=== PATIENT | male | born 1940 | race Caucasian/White ===

== ENCOUNTER → 2019-09-22 | Outpatient (CLI) | payer MEDICARE ==
[2019-09-23 14:03] LABS: Bilirubin, Urine Neg (Neg); Blood, Urine 4+ (Neg); Glucose Qualitative, Urine Neg (Neg); Ketones, Urine Neg (Neg); Leukocyte Esterase, Urine 3+ (Neg); Nitrite, Urine Neg (Neg); Protein, Urine 2+ (Neg); Specific Gravity, Urine 1.015 (1.003-1.022); Urobilinogen, Urine NORM (Normal)
[2019-09-23 14:25] LABS: Appearance, Urine Clear (Clear); Color, Urine Yellow (P-Yellow)
[2019-09-23 14:26] LABS: Bacteria Mod /hpf; Calcium Oxalate Crystals Mod /hpf; Squamous Epithelial Cells Not Seen /hpf (Few); White Blood Cells, Urine 25-50 /hpf (0-5)
== END | disposition home or self-care (01) ==
LOC: LAB SHORT 10:00 → LAB 10:00
PROVIDERS: Nurse Practitioner Family
DX: R82.998 Other abnormal findings in urine (principal)
CPT/HCPCS: 81001; 87086

== ENCOUNTER 2019-12-02 12:30 | Emergency (ER) | payer MEDICARE ==
[~2019-12-02] VITALS: Ht 172.7 cm; Wt 69.0 kg
[2019-12-02] MEDS ORDERED: PANTOPRAZOLE SO40 M2 PO (17:23)
[2019-12-02] MEDS ORDERED: CARVEDILOL6.25 MG PO (17:23)
[2019-12-02] MEDS ORDERED: CALCITRIOL0.25 MC1 PO (17:23)
[2019-12-02] MEDS ORDERED: LOSARTAN POTASS25 M2 PO (17:23)
[2019-12-02] MEDS ORDERED: ALLOPURINOL100 M1 PO (17:23)
[2019-12-02] MEDS ORDERED: TAMSULOSIN HCL0.4 M1 PO (17:23)
== END 2019-12-02 19:20 | disposition home or self-care (01) ==
LOC: ER 12:30
DX: S40.011A Contusion of right shoulder, initial encounter (principal); S70.01XA Contusion of right hip, initial encounter; F03.90 Unspecified dementia, unspecified severity, without behavioral disturbance, psychotic disturbance, mood disturbance, and anxiety; I48.91 Unspecified atrial fibrillation; N40.0 Benign prostatic hyperplasia without lower urinary tract symptoms; I13.0 Hypertensive heart and chronic kidney disease with heart failure and stage 1 through stage 4 chronic kidney disease, or unspecified chronic kidney disease; N18.3 Chronic kidney disease, stage 3 (moderate); I50.9 Heart failure, unspecified; K21.9 Gastro-esophageal reflux disease without esophagitis; E78.5 Hyperlipidemia, unspecified; Z95.810 Presence of automatic (implantable) cardiac defibrillator; Z88.8 Allergy status to other drugs, medicaments and biological substances; Z79.899 Other long term (current) drug therapy; W18.2XXA Fall in (into) shower or empty bathtub, initial encounter
CPT/HCPCS: 73030; 73502; 99283-25

== ENCOUNTER 2019-12-12 08:51 | Emergency (ER) | payer MEDICARE ==
[~2019-12-12] VITALS: Ht 172.7 cm; Wt 69.0 kg
[~2019-12-12 08:51] MED LIST: ALLOPURINOL100 M1 PO; CALCITRIOL0.25 MC1 PO; CARVEDILOL6.25 MG PO; LOSARTAN POTASS25 M2 PO; PANTOPRAZOLE SO40 M2 PO; TAMSULOSIN HCL0.4 M1 PO
[2019-12-12] MEDS ORDERED: ELIQUIS5 MG PO (10:03)
[2019-12-12] MEDS ORDERED: MELA3 PO (10:04)
[2019-12-12] MEDS ORDERED: FERSU300 PO (10:04)
[2019-12-12] MEDS ORDERED: CENTRUM SILVER1 EAC2 PO (10:06)
[2019-12-12] MEDS ORDERED: ROSU5 PO (10:09)
[2019-12-12] MEDS ORDERED: QUET25 PO (10:09)
[2019-12-12] MEDS ORDERED: TORSE20 PO (10:10)
[2019-12-12] MEDS ORDERED: SERT100 PO (10:10)
[2019-12-12] MEDS ORDERED: LOPE2C PO (10:11)
[2019-12-12] MEDS ORDERED: LORA.5 PO (10:11)
[2019-12-12] MEDS ORDERED: ASCO500 PO (10:11)
[2019-12-12 10:16] LABS: BASOPHILS ABSOLUTE AUTO 0.06 K/mm3 (0.00-0.23); BASOPHILS PERCENT AUTO 1 % (0-2); EOSINOPHILS ABSOLUTE AUTO 0.25 K/mm3 (0.00-0.68); EOSINOPHILS PERCENT AUTO 5 % (0-6); Hematocrit 42.7 % (37.0-53.0); Hemoglobin 13.5 g/dL (13.5-17.5); IMMATURE GRAN ABSOLUTE AUTO 0.01 K/mm3 (0.00-0.10); IMMATURE GRAN PERCENT AUTO 0 % (0-1); LYMPHOCYTES PERCENT AUTO 20 % (21-46); MONOCYTES PERCENT AUTO 10 % (4-13); Mean Corpuscular HGB 29.2 pg (26.0-34.0); Mean Corpuscular HGB Conc 31.6 g/dL (31.5-36.5); Mean Corpuscular Volume 92 fL (80-100); Mean Platelet Volume 11.4 fL (9.1-12.4); NEUTROPHILS ABSOLUTE AUTO 3.13 K/mm3 (1.96-9.15); NEUTROPHILS PERCENT AUTO 63 % (41-73); Platelet Count 158 K/mm3 (150-400); RDW Coefficient Variation 17.1 % (11.7-14.2); Red Blood Cell Count 4.63 M/mm3 (4.30-5.90); White Blood Cell Count 4.95 K/mm3 (4.00-11.30)
[2019-12-12 10:39] LABS: Alanine Aminotransfer (ALT/SGP 31 U/L (12-78); Albumin, Blood 3.7 g/dL (3.4-5.0); Albumin/Globulin Ratio 1.2 (0.8-1.8); Alk Phos 114 U/L (50-136); Anion Gap 7 mmol/L (6-16); Aspartate Aminotrans (AST/SGOT 23 U/L (12-37); Bilirubin, Total 1.1 mg/dL (0.1-1.0); Blood Urea Nitrogen 28 mg/dL (8-24); Bun/Creatinine Ratio 19.7 (12.0-20.0); CO2, Blood 29 mmol/L (21-32); Calcium, Blood 8.9 mg/dL (8.5-10.1); Chloride, Blood 104 mmol/L (98-108); Creatinine, Blood 1.42 mg/dL (0.60-1.20); Globulin, Blood 3.2 g/dL (2.2-4.0); Glomerular Filtration Rate 51 (60-); Glucose, Blood 108 mg/dL (70-99); Potassium, Blood 3.7 mmol/L (3.5-5.5); Sodium, Blood 140 mmol/L (136-145); Total Protein, Blood 6.9 g/dL (6.4-8.2); Troponin I <0.015 ng/mL (0.000-0.040)
[2019-12-12 11:09] LABS: Source, Urine Clean Catch
[2019-12-12 11:13] LABS: Appearance, Urine Clear (Clear); Bilirubin, Urine Neg (Neg); Blood, Urine 2+ (Neg); Color, Urine Yellow (P-Yellow); Glucose Qualitative, Urine Neg (Neg); Ketones, Urine Neg (Neg); Leukocyte Esterase, Urine 1+ (Neg); Nitrite, Urine Neg (Neg); Protein, Urine Neg (Neg); Urobilinogen, Urine 1+ (Normal)
[2019-12-12 11:50] LABS: Bacteria Rare /hpf; Hyaline Casts 0-2 /lpf (0-2); Squamous Epithelial Cells Not Seen /hpf (Few)
== END 2019-12-12 14:27 | disposition home or self-care (01) ==
LOC: ER 08:51
PROVIDERS: Physician Assistant
DX: R53.1 Weakness (principal); I48.91 Unspecified atrial fibrillation; N40.0 Benign prostatic hyperplasia without lower urinary tract symptoms; I13.0 Hypertensive heart and chronic kidney disease with heart failure and stage 1 through stage 4 chronic kidney disease, or unspecified chronic kidney disease; N18.30 Chronic kidney disease, stage 3 unspecified; I50.9 Heart failure, unspecified; K21.9 Gastro-esophageal reflux disease without esophagitis; F01.50 Vascular dementia, unspecified severity, without behavioral disturbance, psychotic disturbance, mood disturbance, and anxiety; Z79.899 Other long term (current) drug therapy; Z79.01 Long term (current) use of anticoagulants; Z88.8 Allergy status to other drugs, medicaments and biological substances; Z95.810 Presence of automatic (implantable) cardiac defibrillator
CPT/HCPCS: 36415; 70450; 71046; 80053; 81001; 83880; 84484; 85025; 87086; 96360; 96361; 96372-59; 99285-25; J1650; J7030

== ENCOUNTER 2019-12-29 13:53 | Emergency (ER) | payer MEDICARE ==
[~2019-12-29] VITALS: Ht 167.6 cm; Wt 69.0 kg
[~2019-12-29 13:53] MED LIST changes: +ASCO500 PO; +CENTRUM SILVER1 EAC2 PO; +ELIQUIS5 MG PO; +FERSU300 PO; +LOPE2C PO; +LORA.5 PO; +MELA3 PO; +QUET25 PO; +ROSU5 PO; +SERT100 PO; +TORSE20 PO
[2019-12-29 14:33] LABS: BASOPHILS ABSOLUTE AUTO 0.06 K/mm3 (0.00-0.23); BASOPHILS PERCENT AUTO 1 % (0-2); EOSINOPHILS ABSOLUTE AUTO 0.03 K/mm3 (0.00-0.68); EOSINOPHILS PERCENT AUTO 0 % (0-6); Hematocrit 47.6 % (37.0-53.0); Hemoglobin 15.2 g/dL (13.5-17.5); IMMATURE GRAN ABSOLUTE AUTO 0.03 K/mm3 (0.00-0.10); IMMATURE GRAN PERCENT AUTO 0 % (0-1); LYMPHOCYTES ABSOLUTE AUTO 0.73 K/mm3 (0.84-5.20); LYMPHOCYTES PERCENT AUTO 9 % (21-46); MONOCYTES ABSOLUTE AUTO 0.52 K/mm3 (0.16-1.47); MONOCYTES PERCENT AUTO 7 % (4-13); Mean Corpuscular HGB 29.6 pg (26.0-34.0); Mean Corpuscular HGB Conc 31.9 g/dL (31.5-36.5); Mean Corpuscular Volume 93 fL (80-100); Mean Platelet Volume 10.8 fL (9.1-12.4); NEUTROPHILS ABSOLUTE AUTO 6.42 K/mm3 (1.96-9.15); NEUTROPHILS PERCENT AUTO 82 % (41-73); Platelet Count 177 K/mm3 (150-400); RDW Coefficient Variation 16.6 % (11.7-14.2); RDW Standard Deviation 55.9 fL (35.1-46.3); Red Blood Cell Count 5.14 M/mm3 (4.30-5.90); White Blood Cell Count 7.79 K/mm3 (4.00-11.30)
[2019-12-29 14:49] LABS: Albumin, Blood 3.9 g/dL (3.4-5.0); Albumin/Globulin Ratio 1.4 (0.8-1.8); Bilirubin, Total 2.5 mg/dL (0.1-1.0); Bun/Creatinine Ratio 21.2 (12.0-20.0); Calcium, Blood 8.8 mg/dL (8.5-10.1); Creatinine, Blood 1.79 mg/dL (0.60-1.20); Globulin, Blood 2.8 g/dL (2.2-4.0); Potassium, Blood 4.4 mmol/L (3.5-5.5); Total Protein, Blood 6.7 g/dL (6.4-8.2); Troponin I 0.038 ng/mL (0.000-0.040)
== END 2019-12-29 18:38 | disposition home or self-care (01) ==
LOC: ER 13:53
PROVIDERS: Emergency Medicine
DX: R07.9 Chest pain, unspecified (principal); I48.91 Unspecified atrial fibrillation; I12.9 Hypertensive chronic kidney disease with stage 1 through stage 4 chronic kidney disease, or unspecified chronic kidney disease; N18.30 Chronic kidney disease, stage 3 unspecified; K21.9 Gastro-esophageal reflux disease without esophagitis; E78.5 Hyperlipidemia, unspecified; Z20.828 Contact with and (suspected) exposure to other viral communicable diseases; Z95.0 Presence of cardiac pacemaker; Z88.8 Allergy status to other drugs, medicaments and biological substances; Z79.899 Other long term (current) drug therapy; Z79.01 Long term (current) use of anticoagulants
CPT/HCPCS: 36415; 71045; 80053; 83690; 83880; 84484; 85025; 93005; 93010; 99285-25; U0003

== ENCOUNTER 2020-01-27 15:26 | Emergency (ER) | payer MEDICARE ==
[~2020-01-27] VITALS: Ht 170.2 cm; Wt 63.5 kg
[2020-01-27 16:12] LABS: BASOPHILS ABSOLUTE AUTO 0.05 K/mm3 (0.00-0.23); BASOPHILS PERCENT AUTO 1 % (0-2); EOSINOPHILS PERCENT AUTO 5 % (0-6); Hematocrit 45.5 % (37.0-53.0); Hemoglobin 14.3 g/dL (13.5-17.5); IMMATURE GRAN PERCENT AUTO 0 % (0-1); LYMPHOCYTES ABSOLUTE AUTO 1.01 K/mm3 (0.84-5.20); LYMPHOCYTES PERCENT AUTO 24 % (21-46); MONOCYTES PERCENT AUTO 12 % (4-13); Mean Corpuscular HGB 28.5 pg (26.0-34.0); Mean Corpuscular HGB Conc 31.4 g/dL (31.5-36.5); Mean Corpuscular Volume 91 fL (80-100); Mean Platelet Volume 10.8 fL (9.1-12.4); NEUTROPHILS ABSOLUTE AUTO 2.54 K/mm3 (1.96-9.15); NEUTROPHILS PERCENT AUTO 59 % (41-73); Platelet Count 219 K/mm3 (150-400); RDW Coefficient Variation 15.9 % (11.7-14.2); RDW Standard Deviation 52.2 fL (35.1-46.3); Red Blood Cell Count 5.02 M/mm3 (4.30-5.90)
[2020-01-27 16:28] LABS: Albumin, Blood 3.8 g/dL (3.4-5.0); Albumin/Globulin Ratio 1.1 (0.8-1.8); Bun/Creatinine Ratio 29.4 (12.0-20.0); Calcium, Blood 8.9 mg/dL (8.5-10.1); Creatinine, Blood 1.43 mg/dL (0.60-1.20); Globulin, Blood 3.6 g/dL (2.2-4.0); Potassium, Blood 3.5 mmol/L (3.5-5.5); Total Protein, Blood 7.4 g/dL (6.4-8.2)
== END 2020-01-27 18:56 | disposition home or self-care (01) ==
LOC: ER 15:26
PROVIDERS: Emergency Medicine
DX: K92.2 Gastrointestinal hemorrhage, unspecified (principal); I13.0 Hypertensive heart and chronic kidney disease with heart failure and stage 1 through stage 4 chronic kidney disease, or unspecified chronic kidney disease; I50.9 Heart failure, unspecified; N18.30 Chronic kidney disease, stage 3 unspecified; I48.91 Unspecified atrial fibrillation; I48.92 Unspecified atrial flutter; K21.9 Gastro-esophageal reflux disease without esophagitis; E78.5 Hyperlipidemia, unspecified; F01.50 Vascular dementia, unspecified severity, without behavioral disturbance, psychotic disturbance, mood disturbance, and anxiety; Z79.899 Other long term (current) drug therapy; Z79.02 Long term (current) use of antithrombotics/antiplatelets; Z88.8 Allergy status to other drugs, medicaments and biological substances; Z95.0 Presence of cardiac pacemaker
CPT/HCPCS: 36415; 80053; 82272; 85025; 93005; 93010; 99284-25

== ENCOUNTER 2020-06-16 09:01 | Emergency (ER) | payer MEDICARE ==
[~2020-06-16] VITALS: Ht 170.2 cm; Wt 73.5 kg
== END 2020-06-16 12:14 | disposition home or self-care (01) ==
LOC: ER 09:01
DX: R06.02 Shortness of breath (principal); I13.0 Hypertensive heart and chronic kidney disease with heart failure and stage 1 through stage 4 chronic kidney disease, or unspecified chronic kidney disease; N18.30 Chronic kidney disease, stage 3 unspecified; K21.9 Gastro-esophageal reflux disease without esophagitis; E78.5 Hyperlipidemia, unspecified; I48.91 Unspecified atrial fibrillation; Z79.899 Other long term (current) drug therapy
CPT/HCPCS: 70450; 71045; 80053; 83880; 84484; 85025; 93005; 93010; 96374; 99285-25; J1940

== ENCOUNTER 2020-06-18 12:10 | Emergency (ER) | payer MEDICARE ==
[~2020-06-18] VITALS: Ht 167.6 cm; Wt 73.5 kg
[2020-06-18 12:42] LABS: BASOPHILS ABSOLUTE AUTO 0.08 K/mm3 (0.00-0.23); BASOPHILS PERCENT AUTO 2 % (0-2); EOSINOPHILS ABSOLUTE AUTO 0.16 K/mm3 (0.00-0.68); EOSINOPHILS PERCENT AUTO 3 % (0-6); Hematocrit 44.3 % (37.0-53.0); Hemoglobin 14.2 g/dL (13.5-17.5); IMMATURE GRAN ABSOLUTE AUTO 0.01 K/mm3 (0.00-0.10); IMMATURE GRAN PERCENT AUTO 0 % (0-1); LYMPHOCYTES ABSOLUTE AUTO 0.81 K/mm3 (0.84-5.20); LYMPHOCYTES PERCENT AUTO 15 % (21-46); MONOCYTES ABSOLUTE AUTO 0.47 K/mm3 (0.16-1.47); MONOCYTES PERCENT AUTO 9 % (4-13); Mean Corpuscular HGB 29.5 pg (26.0-34.0); Mean Corpuscular HGB Conc 32.1 g/dL (31.5-36.5); Mean Corpuscular Volume 92 fL (80-100); Mean Platelet Volume 11.7 fL (9.1-12.4); NEUTROPHILS ABSOLUTE AUTO 3.97 K/mm3 (1.96-9.15); NEUTROPHILS PERCENT AUTO 72 % (41-73); Platelet Count 143 K/mm3 (150-400); RDW Coefficient Variation 15.3 % (11.7-14.2); RDW Standard Deviation 51.7 fL (35.1-46.3); Red Blood Cell Count 4.81 M/mm3 (4.30-5.90)
[2020-06-18] MEDS ORDERED: ACET325 PO (12:46)
[2020-06-18] MEDS ORDERED: MIRALAX17 GM PO (12:47)
[2020-06-18 13:08] LABS: Albumin, Blood 3.8 g/dL (3.4-5.0); Albumin/Globulin Ratio 1.2 (0.8-1.8); Bilirubin, Total 1.3 mg/dL (0.1-1.0); Bun/Creatinine Ratio 27.7 (12.0-20.0); Calcium, Blood 8.4 mg/dL (8.5-10.1); Creatinine, Blood 1.37 mg/dL (0.60-1.20); Globulin, Blood 3.3 g/dL (2.2-4.0); Potassium, Blood 4.2 mmol/L (3.5-5.5); Total Protein, Blood 7.1 g/dL (6.4-8.2); Troponin I 0.022 ng/mL (0.000-0.040)
== END 2020-06-18 16:00 | disposition home or self-care (01) ==
LOC: ER 12:10
PROVIDERS: Emergency Medicine
DX: I13.0 Hypertensive heart and chronic kidney disease with heart failure and stage 1 through stage 4 chronic kidney disease, or unspecified chronic kidney disease (principal); I50.9 Heart failure, unspecified; N18.9 Chronic kidney disease, unspecified; I48.91 Unspecified atrial fibrillation; Z79.899 Other long term (current) drug therapy
CPT/HCPCS: 36415; 71045; 80053; 83880; 84484; 85025; 93005; 93010; 99285-25; A9270

== ENCOUNTER 2020-07-09 19:48 | Emergency (ER) | payer MEDICARE, OTHER ==
[~2020-07-09] VITALS: Ht 170.2 cm; Wt 77.1 kg
[~2020-07-09 19:48] MED LIST changes: -ALLOPURINOL100 M1 PO; -ASCO500 PO; -CARVEDILOL6.25 MG PO; -ELIQUIS5 MG PO; -FERSU300 PO; +LOSA25 PO; -LOSARTAN POTASS25 M2 PO; -MELA3 PO; +MIRALAX17 GM PO; +Melatonin1 MG PO
== END 2020-07-09 23:00 | disposition home or self-care (01) ==
LOC: ER 19:48
DX: S20.224A Contusion of middle back wall of thorax, initial encounter (principal); I13.0 Hypertensive heart and chronic kidney disease with heart failure and stage 1 through stage 4 chronic kidney disease, or unspecified chronic kidney disease; I50.9 Heart failure, unspecified; N18.30 Chronic kidney disease, stage 3 unspecified; K21.9 Gastro-esophageal reflux disease without esophagitis; Z88.8 Allergy status to other drugs, medicaments and biological substances; Z79.899 Other long term (current) drug therapy; W18.30XA Fall on same level, unspecified, initial encounter
CPT/HCPCS: 36415; 72070; 72100; 99283-25

== ENCOUNTER 2020-08-12 09:48 | Observation (INO) | payer MEDICARE, OTHER ==
[~2020-08-12] VITALS: Ht 170.2 cm; Wt 84.0 kg
[2020-08-12 10:08] LABS: BASOPHILS ABSOLUTE AUTO 0.04 K/mm3 (0.00-0.23); BASOPHILS PERCENT AUTO 1 % (0-2); EOSINOPHILS PERCENT AUTO 2 % (0-6); Hemoglobin 13.5 g/dL (13.5-17.5); IMMATURE GRAN ABSOLUTE AUTO 0.01 K/mm3 (0.00-0.10); IMMATURE GRAN PERCENT AUTO 0 % (0-1); LYMPHOCYTES ABSOLUTE AUTO 0.65 K/mm3 (0.84-5.20); LYMPHOCYTES PERCENT AUTO 10 % (21-46); MONOCYTES ABSOLUTE AUTO 0.47 K/mm3 (0.16-1.47); MONOCYTES PERCENT AUTO 7 % (4-13); Mean Corpuscular HGB 30.1 pg (26.0-34.0); Mean Corpuscular HGB Conc 32.1 g/dL (31.5-36.5); Mean Corpuscular Volume 94 fL (80-100); NEUTROPHILS ABSOLUTE AUTO 5.44 K/mm3 (1.96-9.15); NEUTROPHILS PERCENT AUTO 81 % (41-73); Platelet Count 188 K/mm3 (150-400); RDW Coefficient Variation 15.4 % (11.7-14.2); RDW Standard Deviation 53.1 fL (35.1-46.3); Red Blood Cell Count 4.48 M/mm3 (4.30-5.90); White Blood Cell Count 6.71 K/mm3 (4.00-11.30)
[2020-08-12 10:40] LABS: Albumin, Blood 3.4 g/dL (3.4-5.0); Bilirubin, Total 0.9 mg/dL (0.1-1.0); Bun/Creatinine Ratio 27.3 (12.0-20.0); Creatinine, Blood 1.32 mg/dL (0.60-1.20); Globulin, Blood 3.3 g/dL (2.2-4.0); Potassium, Blood 4.7 mmol/L (3.5-5.5); Total Protein, Blood 6.7 g/dL (6.4-8.2); Troponin I 0.026 ng/mL (0.000-0.040)
[2020-08-12] MEDS ORDERED: Ketoconazole15 GM TOP (13:31)
[2020-08-12] MEDS ORDERED: ACET325 PO (14:05)
[2020-08-12] MEDS ORDERED: ELIQUIS5 MG PO (14:06)
[2020-08-12] MEDS ORDERED: ALLOPURINOL100 M1 PO (14:06)
[2020-08-12] MEDS ORDERED: CARVEDILOL6.25 MG PO (14:06)
[2020-08-12] MEDS ORDERED: FEROSUL220 MG/51 PO (14:07)
[2020-08-12] MEDS ORDERED: ALUM-MAG HYDROX30 ML PO (14:09)
[2020-08-12] MEDS ORDERED: ASCO500 PO ×2 (14:10→15:26)
[2020-08-12] MEDS ORDERED: TORSE20 PO (14:11)
--- NOTE | 2020-08-12 14:28 | NUR ---
Echocardiogram completed.
--- NOTE | 2020-08-12 18:55 | NUR ---
SHIFT SUMMARY PT ARRIVED FROM ER AROUND 3PM. SLID OVER FROM BED, STATES HE USES A WALKER AT BASELINE BUT THAT HE FALLS A LOT. MOSTLY ORIENTED, SOME WORD FINDING DIFFICULTIES. SCROTAL AND COCCYX SORES, PICTURES IN CHART. INCONTINENT URINE. TELE PACED IN 60S. 2L OXYGEN BASELINE. CALL LIGHT IN REACH, [facility]
--- NOTE | 2020-08-12 21:19 | NUR ---
UPDATE TO [facility] RETURNED A PHONE CALL AND GAVE AN UPDATE ON PT STATUS TO PRESTON SHEEHAN AT [facility], THE PT'S CURRENT LIVING FACILITY PER REPORT. [phone]
--- NOTE | 2020-08-13 00:30 | NUR ---
SPOKE WITH DR SANCHES RE 6 BEAT RUN OF [facility], PT IS ASYMPTOMATIC, VSS. ORDERS FOR MG WITH AM LABS.
[2020-08-13 04:49] LABS: Hematocrit 39.2 % (37.0-53.0); Hemoglobin 13.1 g/dL (13.5-17.5); Mean Corpuscular HGB 30.4 pg (26.0-34.0); Mean Corpuscular HGB Conc 33.4 g/dL (31.5-36.5); Mean Corpuscular Volume 91 fL (80-100); Mean Platelet Volume 11.2 fL (9.1-12.4); Platelet Count 192 K/mm3 (150-400); RDW Coefficient Variation 15.3 % (11.7-14.2); RDW Standard Deviation 51.3 fL (35.1-46.3); Red Blood Cell Count 4.31 M/mm3 (4.30-5.90); White Blood Cell Count 8.27 K/mm3 (4.00-11.30)
[2020-08-13 05:18] LABS: Bun/Creatinine Ratio 28.2 (12.0-20.0); Creatinine, Blood 1.42 mg/dL (0.60-1.20); Magnesium, Blood 2.4 mg/dL (1.6-2.4); Potassium, Blood 4.3 mmol/L (3.5-5.5)
--- NOTE | 2020-08-13 07:17 | NUR ---
SHIFT SUMMARY PT IS AN 79 Y/O MALE, ADMITTED FOR CHF EXACERBATION. HE IS A&O X 2, FORGETFUL AT TIMES, BEDREST & INCONTINENT. NO C/O ACUTE PAIN, NAUSEA OR SOB. PT IS ON 2L OF O2 VIA NC. PER WIG MAKER, PT HAD TWO EPISODES OF V-TACH, ONE 5 BEATS AND ONE [address] SANCHES WAS NOTIFIED, NO CHANGES IN ORDERS AT THIS TIME. TELE OTHERWISE SHOWED PACED AT 70. VITAL SIGNS OTHERWISE STABLE. NO ACUTE CHANGES IN PT CONDITION NOTED DURING THE NIGHT. REPORT GIVEN TO ONCOMING RN.
--- NOTE | 2020-08-13 18:45 | NUR ---
PT HAD 2 BM; GUAIAC SPECIMEN COLLECTED; PT TURNED Q2H; VSS; PT FED HIMSELF ALL 3 MEALS SUCCESSFULLY; PT CONTINUED TO REQUIRE 2LNC TO MAINTAIN OXYGEN SATURATIONS; PT'S FEET APPEAR VERY WEAK ON DORSIFLEXION/PLANTARFLEXION; PT REPORTED THAT WORKING WITH PT WAS VERY DIFFICULT; PT DENIES ADDITIONAL CONCERNS AT THIS TIME
--- NOTE | 2020-08-14 06:46 | NUR ---
SHIFT SUMMARY PT IS AN 79 Y/O MALE, ADMITTED FOR CHF EXACERBATION. HE IS A&O X 2-3, CONFUSED/FORGETFUL AT TIMES. BEDREST, INCONTINENT, TURN Q2H. NO C/O ACUTE PAIN, NAUSEA OR SOB. VITAL SIGNS STABLE. NO ACUTE CHANGES IN PT CONDITION NOTED. WILL CONTINUE TO MONITOR AND TREAT PER EMAR UNTIL HAND OFF TO DAY SHIFT RN.
[2020-08-14 14:02] LABS: Stool Occult Blood Guaiac 1 Neg (Neg)
--- NOTE | 2020-08-14 16:52 | NUR ---
PT AOX2 AND PLEASANTLY CONFUSED. PT COOPERATES WELL AND HAS NOT BEEN IMPULSIVE AT THIS TIME. PT IS A 2 PERSON TO BEDSIDE COMMODE WITH GAITBELT. PT DOES NOT ALWAYS USE CALL LIGHT. PT DENIES PAIN. CALL LIGHT IS WITHIN REACH AND BED ALARM IN PLACE. WILL CONTINUE TO MONITOR.
--- NOTE | 2020-08-15 05:38 | NUR ---
Patient is alert and orientated x 3 (-) time, patient was awake throughout entire evening, patient has increased edematous BUE as well as scrotal edema, right groin mass, slight weeping. Patient reports that it has been this way for 20 years but can be a poor historian.
--- NOTE | 2020-08-15 17:07 | NUR ---
PT AOX2 WITH NO ACUTE CHANGES. PT IS COOPERATIVE OF CARE AND A TWO PERSON TO BEDSIDE COMMODE. PT HAS NOT BEEN IMPULSIVE AND HAS CALL LIGHT WITHIN REACH. PT DENIES PAIN AT THIS TIME. WILL CONTINUE TO MONITOR.
[2020-08-16 05:15] LABS: Hematocrit 42.5 % (37.0-53.0); Hemoglobin 13.5 g/dL (13.5-17.5); Mean Corpuscular HGB 29.5 pg (26.0-34.0); Mean Corpuscular HGB Conc 31.8 g/dL (31.5-36.5); Mean Corpuscular Volume 93 fL (80-100); Mean Platelet Volume 11.2 fL (9.1-12.4); Platelet Count 174 K/mm3 (150-400); RDW Coefficient Variation 15.5 % (11.7-14.2); RDW Standard Deviation 52.9 fL (35.1-46.3); Red Blood Cell Count 4.58 M/mm3 (4.30-5.90); White Blood Cell Count 4.95 K/mm3 (4.00-11.30)
[2020-08-16 05:34] LABS: Anion Gap 4 mmol/L (6-16); Blood Urea Nitrogen 45 mg/dL (8-24); Bun/Creatinine Ratio 36.6 (12.0-20.0); CO2, Blood 31 mmol/L (21-32); Calcium, Blood 8.1 mg/dL (8.5-10.1); Chloride, Blood 107 mmol/L (98-108); Creatinine, Blood 1.23 mg/dL (0.60-1.20); Glomerular Filtration Rate >60 (60-); Glucose, Blood 89 mg/dL (70-99); Magnesium, Blood 2.2 mg/dL (1.6-2.4); Potassium, Blood 3.6 mmol/L (3.5-5.5); Sodium, Blood 142 mmol/L (136-145)
--- NOTE | 2020-08-16 06:32 | NUR ---
SHIFT SUMMARY PT AOX4 AT START OF SHIFT. VSS. PACED IN 70'S. SKIN PWD. ON 1.5 L O2 VIA NC. X4 SOFT, FORMED, BROWN BM IN ATTENDS T/O NIGHT. REPOSITIONED SELF T/O NIGHT. CONDOM CATH IN PLACE, DISPLACE X2 AND REPLACED. DRAINING YELLOW URINE. PT DRINKS PO FLUIDS W/O ISSUE. BREATHING EVEN AND UNLABORED, SOME SNORING AND TALKING IN HIS SLEEP T/O NIGHT.
--- NOTE | 2020-08-16 17:10 | NUR ---
PT AOX2 AND COOPERATIVE OF CARE. PT HAS BEEN VERY TIRED TODAY AND SEEMED TO TAKE LONGER NAPS. TELEMETRY REPORTED A 6 BEAT RUN OF V TACH, BUT PT DID NOT SEEM TO BE SYMTOMATIC. PT CONTINUES TO HAVE INCREASED EDEMA OF L ARM AND DR DIAZ WAS NOTIFIED AND ORDERED AN ULTRA SOUND WHICH WAS NEGATIVE. PT HAS BED ALARM IN PLACE AND CALL LIGHT WITHIN REACH WILL CONTINUE TO MONITOR.
--- NOTE | 2020-08-16 22:07 | NUR ---
RHYTHM CHANGE AT 2114 I WAS NOTIFED BY SATELLITE TV INSTALLER, PT HAD A 5 BEAT RUN OF V. TACH & CONVERTED BACK TO PACED c HR 70. ASKED IF PT HAD ANY PREVIOUS EPISODES V. TACH & TELE INFORMED ME @1045 AM PT HAD V. TACH. VSS TONIGHT. PT RESTING COMFORTABLY IN BED W/O ANY COMPLAINTS. INFORMED DR ARTEAGA. [facility].
[2020-08-17 04:35] LABS: Hemoglobin 13.7 g/dL (13.5-17.5); Mean Corpuscular HGB 30.4 pg (26.0-34.0); Mean Corpuscular HGB Conc 32.6 g/dL (31.5-36.5); Mean Corpuscular Volume 93 fL (80-100); Platelet Count 165 K/mm3 (150-400); RDW Coefficient Variation 15.6 % (11.7-14.2); RDW Standard Deviation 53.3 fL (35.1-46.3); Red Blood Cell Count 4.51 M/mm3 (4.30-5.90); White Blood Cell Count 4.71 K/mm3 (4.00-11.30)
[2020-08-17 04:51] LABS: Albumin, Blood 3.1 g/dL (3.4-5.0); Anion Gap 5 mmol/L (6-16); Blood Urea Nitrogen 40 mg/dL (8-24); Bun/Creatinine Ratio 30.5 (12.0-20.0); CO2, Blood 32 mmol/L (21-32); Calcium, Blood 8.1 mg/dL (8.5-10.1); Chloride, Blood 105 mmol/L (98-108); Creatinine, Blood 1.31 mg/dL (0.60-1.20); Glomerular Filtration Rate 56 (60-); Glucose, Blood 88 mg/dL (70-99); Phosphorus, Blood 3.6 mg/dL (2.5-4.9); Potassium, Blood 4.1 mmol/L (3.5-5.5); Sodium, Blood 142 mmol/L (136-145)
--- NOTE | 2020-08-17 05:54 | NUR ---
SHIFT SUMMARY AOX3, FORGETFUL. HX DEMENTIA. TALKS & RAMMBLES ON WHILE ASLEEP. VSS. SPO2 >90% ON 1.5L O2. HAD 2 EPISODES V. TACH LAST NIGHT, READ PREVIOUS NOTE. CONDOM CATH IN PLACE FOR I&O, REPLACED THIS SHIFT-DRAINING CLEAR YELLOW URINE. L ARM NONPITTING EDEMA, ELEVATED ON PILLOW. HAD SM INCONT SOFT BM. CALL LIGHT & BED ALARM IN PLACE, PT HAS BEEN USING CALL LIGHT APPROPRIATELY TO MAKE NEEDS KNOWN. WCTM.
[2020-08-17 08:54] LABS: Magnesium, Blood 2.4 mg/dL (1.6-2.4); Phosphorus, Blood 3.7 mg/dL (2.5-4.9)
--- NOTE | 2020-08-18 04:20 | NUR ---
SHIFT SUMMARY NO ACUTE CHANGES THIS SHIFT. AOX3, FORGETFUL. VSS. DENIES PAIN, N/V OR SOB. PT SPO2 HAS BEEN >90% T/O NIGHT ON RA. TELE PACED c PVCS @73. CONDOM CATH PLACED FOR I&O, SINCE PT INCONT, DRAINING CLEAR YELLOW URINE. HAD AT LEAST 2 SM SOFT BROWN BM THIS SHIFT. CALL LIGHT & BED ALARM IN PLACE. WCTM.
[2020-08-18 08:48] LABS: Albumin, Blood 3.4 g/dL (3.4-5.0); Anion Gap 5 mmol/L (6-16); Blood Urea Nitrogen 41 mg/dL (8-24); CO2, Blood 28 mmol/L (21-32); Calcium, Blood 8.5 mg/dL (8.5-10.1); Chloride, Blood 103 mmol/L (98-108); Creatinine, Blood 1.17 mg/dL (0.60-1.20); Glomerular Filtration Rate >60 (60-); Glucose, Blood 95 mg/dL (70-99); Phosphorus, Blood 2.8 mg/dL (2.5-4.9); Potassium, Blood 4.2 mmol/L (3.5-5.5); Sodium, Blood 136 mmol/L (136-145)
--- NOTE | 2020-08-18 16:06 | NUR ---
ABIVICD DEVICE CHECKED PER HOSPITALIST ORDER, PDF PRINTOUT PLACED IN FRONT OF CHART, PACEART/OPTIMA REPORT ROUTED TO DR PALACIOS
--- NOTE | 2020-08-18 18:37 | NUR ---
SHIFT SUMMARY PT UP TO CHAIR FOR LUNCH TODAY. 2 PERSON ASSIST FOR TRANSFER AND NEEDED CUING TO PICK HIS FEET UP BECAUSE HE WANTED TO SHUFFLE THEM. ALSO KEPT STICKING HIS BUTTOCKS OUT BEHIND HIM MAKING HIM OFF BALANCE. SAT IN CHAIR FOR SEVERAL HOURS AND TRANSFERRED BACK TO BED WITH 1 PERSON ASSIST AND CUING CONTINUED WITH FEET BUT WAS ABLE TO STAND UPRIGHT WHEN REMINDED AT BEGINNING OF TRANSFER. DENIES RESP DISTRESS WITH ACTIVITY. ASKS FOR SNACKS OF ICE CREAM FRQUENTLY. ATTEMPTING A LOWER LACTOSE DIET TO SEE IF STOOLS BECOME MORE FIRM AND LESS FREQUENT FOR PTS COMFORT. MD AWARE. LUE ELEVATED ON PILLOWS WHEN PT WILL KEEP IT IN PLACE.
--- NOTE | 2020-08-19 06:52 | NUR ---
SHIFT SUMMARY: AOX3, BUT HAS SOME INTERMINTENT CONFUSION. FOLLOWS DIRECTIONS. LUNG SOUNDS WERE CLEAR. HR WITH PACED RYTHEM, OCCATIONAL PVCS. DID HAVE 6 BEAT RUN OF VTAC THEN RETURN TO PACED. PATIENT DENIED FEELING ANYTHING. BLE EDEMA NOTED. LEFT UPPER ARM EDEMA WELL. CONDOM CATH FELL OFF ONCE LAST NIGHT, CURRENTLY IS HOLDING. VSS/AFEBRILE. LOVES HIS ICE CREAM. GOOD APPETITE. DENIED PAIN OR DISCOMFORT. SLEEP WAS AVERAGE. WILL REPORT TO DAYSHIFT. CALL LIGHT IS IN REACH, BED ALARM IS ON.
[2020-08-19 08:58] LABS: Albumin, Blood 3.5 g/dL (3.4-5.0); Anion Gap 2 mmol/L (6-16); Blood Urea Nitrogen 36 mg/dL (8-24); Bun/Creatinine Ratio 34.3 (12.0-20.0); CO2, Blood 34 mmol/L (21-32); Calcium, Blood 8.6 mg/dL (8.5-10.1); Chloride, Blood 99 mmol/L (98-108); Creatinine, Blood 1.05 mg/dL (0.60-1.20); Glomerular Filtration Rate >60 (60-); Glucose, Blood 91 mg/dL (70-99); Magnesium, Blood 2.4 mg/dL (1.6-2.4); Phosphorus, Blood 2.8 mg/dL (2.5-4.9); Potassium, Blood 4.1 mmol/L (3.5-5.5); Sodium, Blood 135 mmol/L (136-145)
--- NOTE | 2020-08-19 16:18 | NUR ---
pt back to bed flushed and dyspnic settled for comfort will follow up with family for support
--- NOTE | 2020-08-19 19:42 | NUR ---
SHIFT SUMMARY: NO ACUTE CHANGES TO REPORT THIS SHIFT. PT A&O; INCREASING CONFUSION T/O DAY; GARBLED SPEECH. TELE IN PLACE; PACEMAKER; HX AFIB c ELIQUIS. DIURETICS CONTINUING. EXPECTED D/C BACK TO [facility] 08/20. REPORT GIVEN TO ONCOMING RN.
[2020-08-20 05:38] LABS: Albumin, Blood 3.3 g/dL (3.4-5.0); Anion Gap 5 mmol/L (6-16); Blood Urea Nitrogen 33 mg/dL (8-24); Bun/Creatinine Ratio 30.8 (12.0-20.0); CO2, Blood 31 mmol/L (21-32); Calcium, Blood 8.4 mg/dL (8.5-10.1); Chloride, Blood 100 mmol/L (98-108); Creatinine, Blood 1.07 mg/dL (0.60-1.20); Glomerular Filtration Rate >60 (60-); Glucose, Blood 104 mg/dL (70-99); Phosphorus, Blood 2.6 mg/dL (2.5-4.9); Sodium, Blood 136 mmol/L (136-145)
--- NOTE | 2020-08-20 07:32 | NUR ---
SHIFT SUMMARY NO ACUTE CHANGES OVERNIGHT. VSS. PT SLEPT GOOD T/O SHIFT. I HAVE BEEN PLACING CONDOM CATH X3 BUT IT KEPT FALLING OFF. VSS. TELE IN PLACED, PACED AT 62 PER TENISHA (TECH). PT HAS SOME CONFUSING AND GARBLED SPEECH INTERMITTENTLY. CALL LIGHT WITHIN REACH. PT CALLS APPROPRIATELY. WILL PROVIDE REPORT TO ONCOMING NURSE.
--- NOTE | 2020-08-20 16:20 | NUR ---
PATIENT DISCHARGE: PATIENT DISCHARGED TO HOME ([facility]) / TRANSFER TO HOME HEALTH THIS SHIFT. MEDICATION RECONCILIATION COMPLETED; NO NEW MEDS TO REPORT; MED LIST PROVIDED TO FACILITY IN DISCHARGE PACKET. PATIENT DEPARTED MEDICAL FLOOR VIA SUNSHINE CAB WITH WHEELCHAIR AT 1543. PATIENT DEPARTED [facility] VIA SUNSHINE TAXI.
== END 2020-08-20 15:42 | disposition home or self-care (01) ==
LOC: ER 09:48 → MEDS 09:50 → ER 12:44 → MEDS 12:44 → ER 14:46 → MEDS 14:54 → ER 08-14 02:38 → MEDS 08-14 02:39 → ENPENDDIS 08-20 10:18 → MEDS 08-20 15:42
PROVIDERS: Emergency Medicine; Internal Medicine; ADMIT Internal Medicine
DX: I13.0 Hypertensive heart and chronic kidney disease with heart failure and stage 1 through stage 4 chronic kidney disease, or unspecified chronic kidney disease (principal); N18.30 Chronic kidney disease, stage 3 unspecified; I50.43 Acute on chronic combined systolic (congestive) and diastolic (congestive) heart failure; K21.9 Gastro-esophageal reflux disease without esophagitis; E78.5 Hyperlipidemia, unspecified; F03.90 Unspecified dementia, unspecified severity, without behavioral disturbance, psychotic disturbance, mood disturbance, and anxiety; N40.0 Benign prostatic hyperplasia without lower urinary tract symptoms; F32.9 Major depressive disorder, single episode, unspecified; I08.3 Combined rheumatic disorders of mitral, aortic and tricuspid valves; I48.0 Paroxysmal atrial fibrillation; I48.92 Unspecified atrial flutter; R91.8 Other nonspecific abnormal finding of lung field; R60.0 Localized edema; I47.2 Ventricular tachycardia; Z79.01 Long term (current) use of anticoagulants; Z88.8 Allergy status to other drugs, medicaments and biological substances; Z95.0 Presence of cardiac pacemaker
CPT/HCPCS: 36415; 71045; 80048; 80053; 80069; 82270; 83735; 83880; 84100; 84145; 84484; 85025; 85027; 93005; 93010; 93283; 93306; 93971; 94760; 96372; 97110; 97110-CQ; 97116; 97116-CQ; 97162; 97530; 97530-CQ; 99285-25; A9270; C9113; G0378

== ENCOUNTER 2020-08-23 20:04 | Inpatient (IN) | payer MEDICARE ==
[~2020-08-23] VITALS: Ht 170.2 cm; Wt 81.2 kg
[~2020-08-23 20:04] MED LIST changes: +ACET325 PO; +ALLOPURINOL100 M1 PO; +ALUM-MAG HYDROX30 ML PO; +ASCO500 PO; +CARVEDILOL6.25 MG PO; +ELIQUIS5 MG PO; +FEROSUL220 MG/51 PO; +Ketoconazole15 GM TOP
[2020-08-23 21:06] LABS: BASOPHILS ABSOLUTE AUTO 0.05 K/mm3 (0.00-0.23); BASOPHILS PERCENT AUTO 1 % (0-2); EOSINOPHILS ABSOLUTE AUTO 0.06 K/mm3 (0.00-0.68); EOSINOPHILS PERCENT AUTO 1 % (0-6); Hematocrit 39.9 % (37.0-53.0); Hemoglobin 12.9 g/dL (13.5-17.5); IMMATURE GRAN ABSOLUTE AUTO 0.04 K/mm3 (0.00-0.10); IMMATURE GRAN PERCENT AUTO 0 % (0-1); LYMPHOCYTES ABSOLUTE AUTO 0.49 K/mm3 (0.84-5.20); LYMPHOCYTES PERCENT AUTO 5 % (21-46); MONOCYTES ABSOLUTE AUTO 0.92 K/mm3 (0.16-1.47); MONOCYTES PERCENT AUTO 9 % (4-13); Mean Corpuscular HGB 29.6 pg (26.0-34.0); Mean Corpuscular HGB Conc 32.3 g/dL (31.5-36.5); Mean Corpuscular Volume 92 fL (80-100); Mean Platelet Volume 12.3 fL (9.1-12.4); NEUTROPHILS ABSOLUTE AUTO 8.99 K/mm3 (1.96-9.15); NEUTROPHILS PERCENT AUTO 85 % (41-73); Platelet Count 152 K/mm3 (150-400); RDW Coefficient Variation 15.5 % (11.7-14.2); RDW Standard Deviation 52.3 fL (35.1-46.3); Red Blood Cell Count 4.36 M/mm3 (4.30-5.90); White Blood Cell Count 10.55 K/mm3 (4.00-11.30)
[2020-08-23 21:17] LABS: Source, Urine Catheter
[2020-08-23 21:20] LABS: Bilirubin, Urine Neg (Neg); Blood, Urine 5+ (Neg); Glucose Qualitative, Urine Neg (Neg); Ketones, Urine Neg (Neg); Leukocyte Esterase, Urine 3+ (Neg); Nitrite, Urine Neg (Neg); Protein, Urine 2+ (Neg); Urobilinogen, Urine 2+ (Normal)
[2020-08-23 21:24] LABS: Albumin, Blood 3.2 g/dL (3.4-5.0); Bilirubin, Total 1.3 mg/dL (0.1-1.0); Bun/Creatinine Ratio 27.9 (12.0-20.0); Calcium, Blood 8.5 mg/dL (8.5-10.1); Creatinine, Blood 1.29 mg/dL (0.60-1.20); Globulin, Blood 3.1 g/dL (2.2-4.0); Potassium, Blood 4.4 mmol/L (3.5-5.5); Total Protein, Blood 6.3 g/dL (6.4-8.2); Troponin I 0.024 ng/mL (0.000-0.040)
[2020-08-23 21:25] LABS: Appearance, Urine Cloudy (Clear); Color, Urine Yellow (P-Yellow)
[2020-08-23 21:26] LABS: Bacteria Many /hpf; Squamous Epithelial Cells Not Seen /hpf (Few); White Blood Cells, Urine TNTC /hpf (0-5)
[2020-08-23 21:37] LABS: Bicarbonate Venous 28.4 mmol/L (24.0-30.0); PCO2 Venous 41.3 mmHg (38-42); pH Blood Venous 7.45 (7.34-7.37)
[2020-08-23 22:36] LABS: SARS-Cov-2 (COVID-19) PCR, MMC NEGATIVE (NEGATIVE)
--- NOTE | 2020-08-24 01:48 | NUR ---
ASSUMED CARE PT ARRIVED ON UNIT AT APPROX 0020. PT AWAKE AND PLEASANT. DURING ADMISSION PT FELL ASLEEP AND IS AROUSED BY VERBAL STIMULI. PT IS UNABLE TO GIVE MEDICAL HX WAS ABLE TO GIVE CONSENT FOR BLOOD. PT HAS SLURRED SPEECH BUT IT WAS REPORTED THAT IS BASELINE. SOFT BP'S. IS ON 2L NC WITH SATS ABOVE 92%. DENIED CHEST PAIN OR FEELING SOB. ORIENTED TO ROOM, CALL LIGHT WITHIN REACH. WILL CONTINUE TO MONITOR.
[2020-08-24 04:40] LABS: BASOPHILS ABSOLUTE AUTO 0.06 K/mm3 (0.00-0.23); BASOPHILS PERCENT AUTO 1 % (0-2); EOSINOPHILS ABSOLUTE AUTO 0.07 K/mm3 (0.00-0.68); EOSINOPHILS PERCENT AUTO 1 % (0-6); Hematocrit 41.1 % (37.0-53.0); Hemoglobin 13.5 g/dL (13.5-17.5); IMMATURE GRAN ABSOLUTE AUTO 0.03 K/mm3 (0.00-0.10); IMMATURE GRAN PERCENT AUTO 0 % (0-1); LYMPHOCYTES PERCENT AUTO 6 % (21-46); MONOCYTES ABSOLUTE AUTO 0.78 K/mm3 (0.16-1.47); MONOCYTES PERCENT AUTO 8 % (4-13); Mean Corpuscular HGB 30.3 pg (26.0-34.0); Mean Corpuscular HGB Conc 32.8 g/dL (31.5-36.5); Mean Corpuscular Volume 92 fL (80-100); Mean Platelet Volume 11.6 fL (9.1-12.4); NEUTROPHILS PERCENT AUTO 84 % (41-73); Platelet Count 142 K/mm3 (150-400); RDW Coefficient Variation 15.5 % (11.7-14.2); RDW Standard Deviation 52.1 fL (35.1-46.3); Red Blood Cell Count 4.45 M/mm3 (4.30-5.90); White Blood Cell Count 9.64 K/mm3 (4.00-11.30)
[2020-08-24 05:05] LABS: Albumin, Blood 3.2 g/dL (3.4-5.0); Albumin/Globulin Ratio 1.1 (0.8-1.8); Bilirubin, Total 1.4 mg/dL (0.1-1.0); Bun/Creatinine Ratio 27.6 (12.0-20.0); Calcium, Blood 8.3 mg/dL (8.5-10.1); Creatinine, Blood 1.27 mg/dL (0.60-1.20); Globulin, Blood 2.9 g/dL (2.2-4.0); Potassium, Blood 3.8 mmol/L (3.5-5.5); Total Protein, Blood 6.1 g/dL (6.4-8.2)
--- NOTE | 2020-08-24 06:02 | NUR ---
SHIFT SUMMARY PT IS ALERT, HE IS ORIENTED TO PLACE AND EVENT AND VERY PLEASANT. NOT ACUTE CHANGES PT VITALS ARE STABLE. PT HAD LOW BP UPON ARRIVAL. PT IS ON 2L NC WITH SATS ABOVE 92%. PT DENIES CHEST PAIN OR SOB. THERE HAVE BEEN NO ACUTE CHANGES. ANGELO IN PLACE AND DRAINING TO GRAVITY.
--- NOTE | 2020-08-24 17:43 | NUR ---
SHIFT SUMMARY NO ACUTE EVENTS THIS SHIFT, VSS. PT'S BP IMPROVED THROUGH SHIFT, O2 TITRATED DOWN TO ROOM AIR AND MAINTAINING WELL IN THE HIGH 90S. PT REMAINED PACED IN THE 70S, WOULD HAVE SHORT RUNS OF V-TACH, DR. BOOGIE NOTIFIED, INSTRUCTED TO GIVE CARVEDILOL ORDERED. HEMATURIA NOTED IN DR. HUGO ANGELO AWARE. PT IS ABLE TO HOLD CONVERSATION WITH STAFF AT TIMES, HOWEVER IS VERY FORGETFUL AND LETHARGIC AT TIMES. THIS RN SPOKE WITH PT'S CAREGIVERS TODAY WHO STATED THAT HE IS VERY FORGETFUL AT BASELINE AND REQUIRES SUPERVISION ON OUTINGS OUTSIDE OF THE RETIREMENT.
[2020-08-25 04:19] LABS: Hematocrit 42.2 % (37.0-53.0); Hemoglobin 13.7 g/dL (13.5-17.5); Mean Corpuscular HGB 29.5 pg (26.0-34.0); Mean Corpuscular HGB Conc 32.5 g/dL (31.5-36.5); Mean Corpuscular Volume 91 fL (80-100); Mean Platelet Volume 12.1 fL (9.1-12.4); Platelet Count 145 K/mm3 (150-400); RDW Coefficient Variation 15.6 % (11.7-14.2); RDW Standard Deviation 51.3 fL (35.1-46.3); Red Blood Cell Count 4.64 M/mm3 (4.30-5.90); White Blood Cell Count 10.65 K/mm3 (4.00-11.30)
[2020-08-25 04:43] LABS: Albumin, Blood 3.2 g/dL (3.4-5.0); Bilirubin, Total 1.4 mg/dL (0.1-1.0); Bun/Creatinine Ratio 28.7 (12.0-20.0); Calcium, Blood 8.7 mg/dL (8.5-10.1); Creatinine, Blood 1.29 mg/dL (0.60-1.20); Globulin, Blood 3.3 g/dL (2.2-4.0); Magnesium, Blood 2.5 mg/dL (1.6-2.4); Total Protein, Blood 6.5 g/dL (6.4-8.2)
--- NOTE | 2020-08-25 04:58 | NUR ---
SHIFT SUMMARY NO ACUTE CHANGES THIS SHIFT. VSS. ALERT BUT NOT ALWAYS ORIENTED. REMAINS PACED. 2, NONSUSTAINED RUNS VTACH NOTED TOWARDS END O0F SHIFT, PT ASYMPTOMATIC. PT ON 2LNC FOR COMFORT. BMX1 THIS SHIFT. HEMATURIA PRESENT BUT LESSENING IN AMOUNT. [facility]", PT'S RESIDENCE, CALLED FOR UPDATE. FAMILY PRESERVATION WORKER STATES HEMATURIA STARTED IN FACILITY, NOT WHEN ANGELO WAS INSERTED IN THE ER WAS PREVIOUSLY BELIEVED. PT CONTINUES TO BE WEAK BUT HAS MO0VED SELF IN BED. HAS NOT BEEN IMPULSIVE THIS SHIFT. DOESN'T USE CALL LIGHT APPROPRIATELY AND STAFF NEEDING TO ASK PT WITH ROUNDING OF PT NEEDS ANYTHING DUE TO HIM NOT USING IT. OTHERWISE, BED ALARM IN PLACE. PT RESTING OFF AND ON T/O SHIFT.
--- NOTE | 2020-08-25 17:02 | NUR ---
NO ACUTE EVENTS THIS SHIFT, VSS. PATIENT IS ORIENTED TO SELF, SURROUNDINGS AND FOLLOWS COMMANDS. PT HAD EPISODE OF COUGHING WITH MEAL, SPEECH EVAL ORDERED TODAY. PT KEPT NPO EXCEPT PILLS UNTIL SPEECH SEES PT D/T ASPIRATION RISK. PT ABLE TO SUCCESSFULLY TAKE PO MEDS WITHOUT COUGHING. PATIENT HAS BEEN ON ROOM AIR, TOLERATING WELL. UP IN RECLINER FOR PART OF SHIFT, X1 ASSIST.
[2020-08-26 04:04] LABS: Hematocrit 41.2 % (37.0-53.0); Hemoglobin 13.5 g/dL (13.5-17.5); Mean Corpuscular HGB 29.4 pg (26.0-34.0); Mean Corpuscular HGB Conc 32.8 g/dL (31.5-36.5); Mean Corpuscular Volume 90 fL (80-100); Mean Platelet Volume 11.9 fL (9.1-12.4); Platelet Count 144 K/mm3 (150-400); RDW Coefficient Variation 15.8 % (11.7-14.2); RDW Standard Deviation 51.2 fL (35.1-46.3); Red Blood Cell Count 4.59 M/mm3 (4.30-5.90); White Blood Cell Count 9.49 K/mm3 (4.00-11.30)
[2020-08-26 04:26] LABS: Alanine Aminotransfer (ALT/SGP 15 U/L (12-78); Albumin, Blood 3.1 g/dL (3.4-5.0); Alk Phos 154 U/L (50-136); Anion Gap 5 mmol/L (6-16); Aspartate Aminotrans (AST/SGOT 16 U/L (12-37); Bilirubin, Total 1.2 mg/dL (0.1-1.0); Blood Urea Nitrogen 34 mg/dL (8-24); Bun/Creatinine Ratio 29.3 (12.0-20.0); CO2, Blood 29 mmol/L (21-32); Calcium, Blood 8.6 mg/dL (8.5-10.1); Chloride, Blood 104 mmol/L (98-108); Creatinine, Blood 1.16 mg/dL (0.60-1.20); Globulin, Blood 3.2 g/dL (2.2-4.0); Glomerular Filtration Rate >60 (60-); Glucose, Blood 94 mg/dL (70-99); Potassium, Blood 3.8 mmol/L (3.5-5.5); Sodium, Blood 138 mmol/L (136-145); Total Protein, Blood 6.3 g/dL (6.4-8.2)
--- NOTE | 2020-08-26 05:01 | NUR ---
SHIFT SUMMARY PT A&O TO SELF & LOCATION. PT FORGETFUL, REQUIRING REMINDING OF INFORMATION. PT GIVEN SCHEDULED PO MEDICATIONS W/ APPLESAUCE D/T REPORT OF PREVIOUS COUGHING W/ WATER INTAKE. PT ABLE TO SWALLOW MEDS W/ APPLESAUCE BUT THEN BEGAN COUGHING MINUTES AFTER INTAKE. PT NPO REMAINDER OF SHIFT UNTIL FURTHER ASSESSMENT BY [facility] PROVIDED. PT W/ 2 RUNS OF VTACH THIS SHIFT. EVENT STRIPS PRINTED IN CHART. PT ASYMPTOMATIC. OTHERWISE PT PACED W/ HR 70's. SPO2 > 92% ON RA. VSS. NO OTHER EVENTS OVER NIGHT. WILL CONTINUE TO MONITOR & PROVIDE CARE UNTIL REPORT OFF TO DAY SHIFT RN.
--- NOTE | 2020-08-26 17:26 | NUR ---
SHIFT SUMMARY NO ACUTE EVENTS THIS SHIFT, VSS. PATIENT IS ALERT AND COOPERATIVE WITH CARE, ABLE TO HOLD LOGICAL CONVERSATION WITH STAFF AT TIMES, WILL MUMBLE AT OTHER TIMES. PT IS ORIENTED TO SELF AND SURROUNDINGS, FOLLOWS COMMANDS. SPEECH THERAPY EVALUATED TODAY, SEE NEW ORDERS. PT TOLERATING PUREE DIET WELL. PT X1 ASSIST WHEN UP IN ROOM, UP IN RECLINER SEVERAL TIMES TODAY FOR MEALS.
[2020-08-27 03:59] LABS: Hematocrit 41.8 % (37.0-53.0); Hemoglobin 13.6 g/dL (13.5-17.5); Mean Corpuscular HGB 29.4 pg (26.0-34.0); Mean Corpuscular HGB Conc 32.5 g/dL (31.5-36.5); Mean Corpuscular Volume 90 fL (80-100); Mean Platelet Volume 12.3 fL (9.1-12.4); Platelet Count 137 K/mm3 (150-400); RDW Coefficient Variation 15.7 % (11.7-14.2); RDW Standard Deviation 51.8 fL (35.1-46.3); Red Blood Cell Count 4.63 M/mm3 (4.30-5.90); White Blood Cell Count 7.48 K/mm3 (4.00-11.30)
[2020-08-27 04:28] LABS: Anion Gap 7 mmol/L (6-16); Blood Urea Nitrogen 33 mg/dL (8-24); Bun/Creatinine Ratio 28.4 (12.0-20.0); CO2, Blood 28 mmol/L (21-32); Calcium, Blood 8.6 mg/dL (8.5-10.1); Chloride, Blood 107 mmol/L (98-108); Creatinine, Blood 1.16 mg/dL (0.60-1.20); Glomerular Filtration Rate >60 (60-); Glucose, Blood 100 mg/dL (70-99); Potassium, Blood 3.8 mmol/L (3.5-5.5); Sodium, Blood 142 mmol/L (136-145)
--- NOTE | 2020-08-27 05:11 | NUR ---
SHIFT SUMMARY NO ACUTE CHANGES THIS SHIFT. VSS. REMAINS ON RA. ANGELO REMAINS, PATENT AND DRAINING. STILL SOME RED OUTPUT NOTED. PT TOLERATED PO FOOD AND FLUIDS THIS SHIFT WHILE FOLLOWING ASPIRATION PRECAUTIONS. OTHERWISE, PT HAS RESTED THIS SHIFT. PT TURNED AND REPOSITIONED WHEN APPROPRIATE BY STAFF. BED ALARM IN PLACE.
--- NOTE | 2020-08-27 18:21 | NUR ---
SHIFT SUMMARY PT HAS BEEN AWAKE AND PLEASANT AND COOPERATIVE WITH CARE ALL DAY. PT IS CONFUSED BUT DOES NOT TRY TO GET OUT OF BED, HE IS SAFE. PT IS INCONTINENT AND HAS BEEN CHANGED MULTIPLE TIMES TODAY. PT HAS BEEN IN THE CHAIR MULTIPLE TIMES TODAY. VS STABLE, PT ON RA. PT IS A FEEDER AND OTHER ASPIRATION PRECAUTIONS ARE IN PLACE. BED ALARM IN PLACE.
[2020-08-28 04:04] LABS: Anion Gap 7 mmol/L (6-16); Blood Urea Nitrogen 33 mg/dL (8-24); CO2, Blood 30 mmol/L (21-32); Calcium, Blood 8.6 mg/dL (8.5-10.1); Chloride, Blood 106 mmol/L (98-108); Creatinine, Blood 1.18 mg/dL (0.60-1.20); Glomerular Filtration Rate >60 (60-); Glucose, Blood 113 mg/dL (70-99); Potassium, Blood 3.8 mmol/L (3.5-5.5); Sodium, Blood 143 mmol/L (136-145)
--- NOTE | 2020-08-28 05:57 | NUR ---
SUMMARY NO ACUTE CHANGES NOTED THROUGH THE NIGHT.PT HAS ATTEMPTED TO USE HIS CALL LIGHT PRN, HE IS STILL CONFUSED ON OCCASION BUT ORIENTED TO SELF & HIS OWN NEEDS. PT IS VOIDING WNL, ATTENDS CHANGED PRN, REPOSITIONING Q2 HRS. VSS, ON RA, BED ALARM IS ON FOR SAFETY, CALL LIGHT IN REACH.
--- NOTE | 2020-08-28 09:37 | NUR ---
TRANSFER PT WILL TRANSFER TO [facility]. REPORT GIVEN TO PRESTON RODRIGUEZ. VS STABLE THIS MORNING, PT ON RA. PT WAS UP IN THE CHAIR FOR BREAKFAST. PT HAS WORKED WITH SPEECH THERAPY TODAY AND CAN HAVE STRAWS WITH A FEEDER AND IS SWITCHED TO PUREE DIET PER PT'S ORDER. PT IS RESTING IN BED AT THIS TIME AND IS PREPARED TO MOVE TO [facility]
--- NOTE | 2020-08-28 16:22 | NUR ---
Pt resting in bed upon arrival. Pt is is A&OX2. Pt unable to verbalize appropriate hospital and reason for stay. Pt appears confused and engages in non sensical conversation. Pt has difficulty with articulating and rambles quite often. Continued therapeutic listening as it is difficult to have a 2 way conversation due to Pt's rambling. Ended visit to allow Pt to rest. Reviewed chart and discussed case with Dr Michele. Discussion took place with family regarding hospice. Family appears to be in agreement for hospice services. Attempted to call family and left messages for Vilma and Walt on both contact numbers with request for a return phone call. Attempted to call daughter Kizzy who is also listed but phone number is no longer valid. Palliative Care will F/U for supportive and therapeutic visits for Pt and family.
--- NOTE | 2020-08-28 17:32 | NUR ---
Shift Summary Received report from Joyce PCU-RN, patient transferred to room 303. Arrived approx. 10:00 am via w/c and had 1p assist transfer to bed. A/Ox2, very conversational. Up in chair for meals and 1p FWW/gait to bathroom. Reports constipation, reminded patient that based on Joyce's report and I/O documentation, patient has already had 2 med bowel movements today. Patient claims those bowels were small. Continued to strain and used digital stimulation with small result. Small bowel was formed and soft. Notified Dr. Michele, no new order. Refused 1700 Carvedilol because "some medications are toxic and I don't want to take anything on an empty stomach" despite offering to give snack with med. Refused lunch d/t c/o constipation. Palliative Care RN Alejandro in to speak with patient. No acute changes, WCTM.
--- NOTE | 2020-08-29 04:16 | NUR ---
SHIFT SUMMARY ADMITTED FOR HYPOTENSION/UTI/PYURIA. DNR CODE. PLAN IS TO DC HOME W/HOSPICE. IV ANTIBIOTICS ARE SCHEDULED. PT HAS DEMENTIA. HE HAS BEEN NOTICEABLY WEAK THIS SHIFT. WE DID NOT AMBULATE HIM TO THE BATHROOM DUE TO HIS WEAKNESS. MEDS GIVEN 1 @ A TIME W/APPLESAUCE. HE IS A FEEDER. HE IS A&O X2. HE IS SOB W/EXERTION OR TALKING.
[2020-08-29 04:45] LABS: Hematocrit 42.6 % (37.0-53.0); Mean Corpuscular HGB Conc 32.9 g/dL (31.5-36.5); Mean Corpuscular Volume 91 fL (80-100); Platelet Count 164 K/mm3 (150-400); RDW Coefficient Variation 15.7 % (11.7-14.2); RDW Standard Deviation 51.8 fL (35.1-46.3); Red Blood Cell Count 4.66 M/mm3 (4.30-5.90); White Blood Cell Count 5.54 K/mm3 (4.00-11.30)
[2020-08-29 05:36] LABS: Anion Gap 8 mmol/L (6-16); Blood Urea Nitrogen 30 mg/dL (8-24); Bun/Creatinine Ratio 27.3 (12.0-20.0); CO2, Blood 26 mmol/L (21-32); Calcium, Blood 8.5 mg/dL (8.5-10.1); Chloride, Blood 104 mmol/L (98-108); Glomerular Filtration Rate >60 (60-); Glucose, Blood 87 mg/dL (70-99); Potassium, Blood 3.8 mmol/L (3.5-5.5); Sodium, Blood 138 mmol/L (136-145)
--- NOTE | 2020-08-29 10:29 | NUR ---
Case Conference Note Spoke with Pt's daughter Vilma over telephone. Confirmed family's wishes for Pt to discharge with hospice services. Vilma reports family has chosen [facility] and has been in contact with Sara at [facility]. [facility]. Vilma reports no concerns at this time and expresses appreciation of conversation.
--- NOTE | 2020-08-30 05:32 | NUR ---
RECYCLING TECHNICIAN SUMMARY NO ACUTE CHANGES THIS SHIFT. PT AAOX2, PLEASANT AND FOLLOWS DIRECTION BUT HAS BASELINE DEMENTIA AND IS CONFUSED AT TIMES. INCONTINENT OF BOWEL AND BLADDER, REQUIRING MULTIPLE ATTENDS CHANGES TONIGHT. PT HAS SLEPT OFF/ON THROUGH THE NIGHT. VSS, WILL CONTINUE TO MONITOR.
--- NOTE | 2020-08-30 11:13 | NUR ---
REPORT CALLED TO PRESTON HOROWITZ AT [facility] AT 11:14 ON 08/30/20
== END 2020-08-30 11:47 | disposition hospice, home (50) | DRG 871 ==
LOC: ER 20:04 → PCU 22:54 → MEDS 08-28 09:56
PROVIDERS: Emergency Medicine; Internal Medicine; ADMIT Internal Medicine
DX: A41.59 Other Gram-negative sepsis (principal); J96.01 Acute respiratory failure with hypoxia; I50.43 Acute on chronic combined systolic (congestive) and diastolic (congestive) heart failure; I42.9 Cardiomyopathy, unspecified; I13.0 Hypertensive heart and chronic kidney disease with heart failure and stage 1 through stage 4 chronic kidney disease, or unspecified chronic kidney disease; I48.20 Chronic atrial fibrillation, unspecified; I47.2 Ventricular tachycardia; G93.40 Encephalopathy, unspecified; R64 Cachexia; Z16.11 Resistance to penicillins; N39.0 Urinary tract infection, site not specified; Z51.5 Encounter for palliative care; N40.0 Benign prostatic hyperplasia without lower urinary tract symptoms; Z20.822 Contact with and (suspected) exposure to COVID-19; N18.30 Chronic kidney disease, stage 3 unspecified; K21.9 Gastro-esophageal reflux disease without esophagitis; I95.2 Hypotension due to drugs; T50.2X5A Adverse effect of carbonic-anhydrase inhibitors, benzothiadiazides and other diuretics, initial encounter; R31.9 Hematuria, unspecified; E78.5 Hyperlipidemia, unspecified; I08.3 Combined rheumatic disorders of mitral, aortic and tricuspid valves; I27.20 Pulmonary hypertension, unspecified; F01.50 Vascular dementia, unspecified severity, without behavioral disturbance, psychotic disturbance, mood disturbance, and anxiety; R51.9 Headache, unspecified; Z88.8 Allergy status to other drugs, medicaments and biological substances; Z90.79 Acquired absence of other genital organ(s); Z95.0 Presence of cardiac pacemaker; Z79.01 Long term (current) use of anticoagulants; Z79.899 Other long term (current) drug therapy; Z68.23 Body mass index [BMI] 23.0-23.9, adult
CPT/HCPCS: 36415; 51701; 71045; 80048; 80053; 81001; 82803; 83605; 83735; 83880; 84484; 85007; 85025; 85027; 85610; 87040; 87077; 87086; 87186; 92526; 92610; 93005; 93010; 93971; 94640; 94760; 96365; 99285-25; A9270; G0103; J0696; J1650; J1940; J2543; J7040; J7050; U0004